=== PATIENT | female | born 1970 | race African-American/Black ===

== ENCOUNTER 2016-08-03 23:57 | Emergency (ER) | payer SELFPAY ==
[~2016-08-03] VITALS: Ht 160 cm; Wt 83.0 kg
[2016-08-04] MEDS ORDERED: MORPHINE SULFATE 4 MG/ML CPJ (NOT FOR IM USE) IV ONE (01:45)
[2016-08-04] MEDS ORDERED: ONDANSETRON HCL 4MG/2ML VIAL IV ONE (01:45)
[2016-08-04] MEDS ORDERED: KETOROLAC 15MG/ML VIAL IV ONE (02:00)
[2016-08-04 04:54] VITALS: BP 98/62
== END 2016-08-04 05:07 | disposition home or self-care (01) ==
LOC: ER 08-04 00:12
DX: M54.9 Dorsalgia, unspecified (principal); H57.12 Ocular pain, left eye; H57.8 Other specified disorders of eye and adnexa
CPT/HCPCS: 70450; 70486; 71010; 72070; 81025; 96374; 99291; J1885; Z7610

== ENCOUNTER 2019-10-11 01:30 | Emergency (ER) | payer MEDICAID ==
[~2019-10-11] VITALS: Ht 157.5 cm; Wt 135.0 kg
[2019-10-11 01:34] VITALS: BP 126/91
[2019-10-11] MEDS ORDERED: IBUPROFEN 600MG TABLET PO NR (03:18)
[2019-10-11 05:10] LABS: CLARITY URINE TURBID (CLEAR); COLOR URINE YELLOW (YELLOW); KETONES URINE TRACE (NEGATIVE); LEUKOCYTE ESTERASE URINE 3+ (NEGATIVE); NITRITE URINE NEGATIVE (NEGATIVE); OCCULT BLOOD URINE 3+ (NEGATIVE); PH URINE 6.5 (4.5-8.0); PROTEIN URINE TRACE (NEGATIVE); SPECIFIC GRAVITY URINE 1.027 (1.005-1.030)
[2019-10-11] MEDS ORDERED: CEPHALEXIN 250MG CAPSULE PO NR (05:45)
== END 2019-10-11 07:48 | disposition left against medical advice (07) ==
LOC: ER 01:30
DX: S20.319A Abrasion of unspecified front wall of thorax, initial encounter (principal); S00.83XA Contusion of other part of head, initial encounter; Y04.0XXA Assault by unarmed brawl or fight, initial encounter; Y93.89 Activity, other specified; Y92.89 Other specified places as the place of occurrence of the external cause; Y99.8 Other external cause status
CPT/HCPCS: 81003; 81025; 99283

== ENCOUNTER 2020-02-26 15:30 | Emergency (ER) | payer MEDICAID ==
[~2020-02-26] VITALS: Ht 167.6 cm; Wt 59.0 kg
[2020-02-26 15:33] VITALS: BP 144/82
[2020-02-26] MEDS ORDERED: LORAZEPAM 1MG TABLET PO ONE (17:30)
[2020-02-26 18:11] LABS: BASOPHILS % 0.9 % (0.0-2.0); HEMATOCRIT. 37.1 % (36.0-48.0); HEMOGLOBIN. 12.3 g/dL (12.0-16.0); LYMPHOCYTES % 27.3 % (20.0-50.0); MEAN CORPUSCULAR VOLUME 90.8 fL (81.0-99.0); MEAN PLATELET VOLUME 8.2 fl (7.4-10.4); MONOCYTES % 9.6 % (2.0-8.0); NEUTROPHILS % 60.2 % (40.0-76.0); PLATELET 266 x1000/uL (130-400); RED BLOOD CELL COUNT 4.09 mill/uL (4.2-5.4); RED CELL DISTRIBUTION WIDTH 13.1 % (11.6-14.6)
[2020-02-26 18:18] LABS: CHLORIDE 106 mEq/L (98-107)
[2020-02-26 18:22] LABS: ETHANOL BLOOD < 10 mg/dL
== END 2020-02-26 19:06 | disposition left against medical advice (07) ==
LOC: ER 15:30
DX: K62.3 Rectal prolapse (principal); F41.9 Anxiety disorder, unspecified; R73.03 Prediabetes; F28 Other psychotic disorder not due to a substance or known physiological condition; J45.909 Unspecified asthma, uncomplicated; F43.10 Post-traumatic stress disorder, unspecified
CPT/HCPCS: 36415; 71045; 80053; 80320; 85025; 99284; G0480